=== PATIENT | female | born 1940 | race Caucasian/White ===

== ENCOUNTER 2016-12-04 08:55 | Day surgery (SDC) | payer MEDICARE, OTHER ==
[~2016-12-04] VITALS: Ht 157.5 cm; Wt 53.5 kg
[~2016-12-04 08:55] MED LIST: AMITRIPTYLINE H50 MG PO; BUTALBITAL-ASA1 EAC1 PO; CITALOPRAM HBR10 MG PO; KLOR-CON20 MEQ PO; MILK OF MA400 MG/5 M PO; NORCO 5-325 TA1 EACH PO; ONDANSETRON ODT4 MG; POTASSIUM20 MEQ/15 PO; PRILOSEC20 MG PO; SUPER B COMPLE150 MG PO; SYNTHROID75 MCG PO; TOPIRAMATE25 MG PO; VITAMIN C250 MG PO; VITAMIN D3400 UNI1 PO
--- NOTE | 2016-12-04 10:45 | NUR ---
12/04/16 1045 Terrell Martinez PATIENT SITTING UP AND SIPPING WATER. O2 TITRATED TO ROOM AIR
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
== END 2016-12-04 11:08 | disposition home or self-care (01) ==
LOC: OPS 08:55 → DS 10:30 → OPS 11:08
PROVIDERS: Colon & Rectal Surgery
PROC: 0DB48ZX Excision of Esophagogastric Junction, Via Natural or Artificial Opening Endoscopic, Diagnostic (ICD-10-PCS; 2016-12-04)
PROC: 0DB68ZX Excision of Stomach, Via Natural or Artificial Opening Endoscopic, Diagnostic (ICD-10-PCS; principal; 2016-12-04 10:30)
DX: K29.50 Unspecified chronic gastritis without bleeding (principal); K22.2 Esophageal obstruction; I10 Essential (primary) hypertension; I87.2 Venous insufficiency (chronic) (peripheral); E03.9 Hypothyroidism, unspecified; M19.90 Unspecified osteoarthritis, unspecified site; G43.909 Migraine, unspecified, not intractable, without status migrainosus; F32.9 Major depressive disorder, single episode, unspecified; Z85.42 Personal history of malignant neoplasm of other parts of uterus; Z79.899 Other long term (current) drug therapy; Z86.010 Personal history of colon polyps; Z98.890 Other specified postprocedural states; Z90.710 Acquired absence of both cervix and uterus; Z87.891 Personal history of nicotine dependence; Z88.8 Allergy status to other drugs, medicaments and biological substances
CPT/HCPCS: 86677; 88305; 99152; 99153; J2250; J3010; J7120

== ENCOUNTER 2018-06-25 10:11 | Emergency (ER) | payer MEDICARE, OTHER ==
[~2018-06-25] VITALS: Ht 157.5 cm; Wt 50.8 kg
--- OUTSIDE RECORDS SUMMARY | ~2018-06-25 | XMS | Encounter Summary ---
Demographics + + + | Address | [address] | | | [place] [address] | + + + | Home Phone | | + + + | Preferred Language | Unknown | + + + | Marital Status | | + + + | Alevism Affiliation | Unknown | + + + | Race | Unknown | + + + | Ethnic Group | Unknown | + + + Author + + + | Author | [facility] | | | and [place] | + + + | Organization | [facility] | | | and [place] | + + + | Address | Unknown | + + + | Phone | Unavailable | + + + Support + + +---------+ + | Name | Relationship | Address | Phone | + + +---------+ + | Sangita Lopez | ECON | Unknown | | + + +---------+ + Care Team Providers + +------+ + | Care Plant Maintenance Manager Name | Role | Phone | + +------+ + | Geovany Oh MD | PCP | | + +------+ + Reason for Referral Diagnostic/Screening (Routine) + +--------+ + + + + | Status | Reason | Specialty | Diagnoses / | Referred By | Referred To | | | | | Procedures | Contact | Contact | + +--------+ + + + + | Authorized | | Radiology | Diagnoses | Field, | [address] | | | | | Occlusion | Mike I, | [address] | | | | | and stenosis | [place] | [place], | | | | | of | [address] | [place] [address] | | | | | unspecified | [place] | Phone: | | | | | carotid | [place], [place] | [phone] | | | | | artery | [address] | Fax: | | | | | Procedures | Phone: | [phone] | | | | | CT Angiogram | [phone] | | | | | | Neck w | Fax: | | | | | | Contrast | [phone] | | + +--------+ + + + + Reason for Visit + + + | Reason | Comments | + + + | New Patient | Occlusion and stenosis of unspecified carotid artery | + + + Evaluate & Treat (Routine) + +--------+ + + + + | Status | Reason | Specialty | Diagnoses / | Referred By | Referred To | | | | | Procedures | Contact | Contact | + +--------+ + + + + | Authorized | | General | Diagnoses | Adri[place], | [facility] | | | | Surgery | Occlusion | Geovany | General | | | | | and stenosis | MD Aime | Surgery [address] | | | | | of | [address] | | | | | unspecified | [address] | [place], | | | | | carotid | [place], | [place] [address] | | | | | artery | [place] [address] | Phone: | | | | | Procedures | Phone: | [phone] | | | | | [place] OFFICE | [phone] | Fax: | | | | | OUTPATIENT | Fax: | [phone] | | | | | NEW 45 | [phone] | | | | | | MINUTES | | | + +--------+ + + + + Encounter Details +--------+---------+ + + + | Date | Type | Department | Care Team | Description | +--------+---------+ + + + | 06/23/ | Office | [facility] | Mike Hanna | Occlusion and | | 2018 | Visit | SURGERY [address] | MD Yanira, FACS [address] | stenosis of | | | | [address] [place], [place] | [address] [place] | unspecified carotid | | | | [address] | [place] [address] | artery (Primary Dx) | | | | [phone] | [phone] | | | | | | | | +--------+---------+ + + + Social History + +-------+ +--------+ + | Tobacco Use | Types | Packs/Day | Years | Date | | | | | Used | | + +-------+ +--------+ + | Former Smoker | | | | Quit: 05/22/2001 | + +-------+ +--------+ + + +---+---+---+ | Smokeless Tobacco: | | | | | Never Used | | | | + +---+---+---+ + + +---------+ + | Alcohol Use | Drinks/We | oz/Week | Comments | | | ek | | | + + +---------+ + | Yes | 0 | 0.0 | Rum & Coke, 5-6 per week or less | | | Standard | | | | | drinks or | | | | | | | | | | equivalen | | | | | t | | | + + +---------+ + + + + | Sex Assigned at | Date Recorded | | | | + + + | Not on file | | + + + + + + + | Job Start Date | Occupation | Industry | + + + + | Not on file | Not on file | Not on file | + + + + + + + + | Travel History | Travel Start | Travel End | + + + + + + | No recent travel history available. | + + documented as of this encounter Last Filed Vital Signs + + + + | Vital Sign | Reading | Time Taken | + + + + | Blood Pressure | 148/78 | 06/23/2018 0946 PDT | + + + + | Pulse | 87 | 06/23/2018945 PDT | + + + + | Temperature | 37.2 C (99 F) | 06/23/2018945 PDT | + + + + | Respiratory Rate | 18 | 06/23/2018945 PDT | + + + + | Oxygen Saturation | 94% | 06/23/2018945 PDT | + + + + | Inhaled Oxygen | - | - | | Concentration | | | + + + + | Weight | 45.7 kg (100 lb 12 | 06/23/2018945 PDT | | | oz) | | + + + + | Height | 158.8 cm (5' 2.5") | 06/23/2018945 PDT | + + + + | Body Mass Index | 18.13 | 06/23/2018945 PDT | + + + + documented in this encounter Plan of Treatment + +--------+ + + | Name | Priori | Associated Diagnoses | Order Schedule | | | ty | | | + +--------+ + + | CT Angiogram Neck w Contrast | Routin | Occlusion and | Expected: | | | e | stenosis of | 06/23/2018, Expires: | | | | unspecified carotid | 06/24/2019 | | | | artery | | + +--------+ + + documented as of this encounter Results Basic Metabolic Panel (06/23/2018 11:05 PDT) + +---------+ + + + | Component | Value | Ref Range | Performed | Pathologist | | | | | At | Signature | + +---------+ + + + | Na | 135 (L) | 136 - 145 | [facility] | | | | | mmol/L | [facility] | [facility] | | | | | [facility] - | | | | | | LAB[facility]ATORY | | + +---------+ + + + | K | 3.7 | 3.4 - 5.1 | [facility] | | | | | mmol/L | [facility] | [facility] | [facility] | | | | | | [facility] - | | | | | | LABORATORY | | + +---------+ + + + | Cl | 103 | 98 - 107 mmol/L | [facility] | | | | | | [facility] | | | | | | [facility] | | | | | | [facility] - | | | | | | LABORATORY | | + +---------+ + + + | CO2 | 28 | 20 - 31 mmol/L | [facility] | | | | | | [facility] | | | [facility] | [facility] | | | | | | [facility] - | | | | | | LABORATORY | | + +---------+ + + + | Anion Gap | 4 | 3 - 16 mmol/L | [facility] | | | | | | [facility] | [facility] | [facility] | [facility] | | | | | | [facility] - | | | | | | LAB[facility]ATORY | | + +---------+ + + + | Glucose | 92 | 60 - 106 mg/dL | [facility] | | | | | | [facility] | | | | | | [facility] | | | | | | [facility] - | | | | | | LABORATORY | | + +---------+ + + + | BUN | 11 | 9 - 23 mg/dL | [facility] | | | | | | [facility] | | | | | | [facility] | | | | | | C[facility] - | | | | | | LABORATORY | | + +---------+ + + + | Creatinine | 0.73 | 0.55 - 1.02 | [facility] | | | | | mg/dL | [facility] | | | | | | [facility] | | | | | | C[facility] - | | | | | | LABORATORY | | + +---------+ + + + | eGFR if not | >60 | >=60 | [facility] | | | | | mL/min/1.73m2 | [facility] | | | [facility] | | | [facility]ICAL | | | | | | CENTER - | | | | | | LABORATORY | | + +---------+ + + + | Ca | 9.1 | 8.7 - 10.4 | [facility] | | | | | mg/dL | [facility] | | | | | | [facility] | | | | | | C[facility] - | | | | | | LABORATORY | | + +---------+ + + + | BUN/Creatin | 15.1 | | [facility] | | | ine Ratio | | | [facility] | | | [facility] | [facility] | | | | | | [facility] - | | | | | | LABORATORY | | + +---------+ + + + + + | Specimen | + + | Blood | + + + + + + + | Performing | Address | City/State[facility] | Phone Number | | Organization | | | | + + + + + | [facility] | [address] | [place] | [phone] | | [facility] | | [address] | | | - LABORATORY | | | | + + + + + documented in this encounter Visit Diagnoses + + | Diagnosis | + + | Occlusion and stenosis of unspecified carotid artery - Primary | + + documented in this encounter
--- OUTSIDE RECORDS SUMMARY | ~2018-06-25 | XMS | Clinical Summary ---
Demographics + + + | Address | [address] | | | [place] [address] | + + + | Home Phone | | + + + | Preferred Language | Unknown | + + + | Marital Status | | + + + | Pentecostalism Affiliation | Unknown | + + + | Race | Unknown | + + + | Ethnic Group | Unknown | + + + Author + + + | Author | [facility] | | | and [place] | + + + | Organization | [facility] | | | and [...] Team Providers + +------+ + | Care Tdp Displays Analyst Name | Role | Phone | + +------+ + | Geovany Oh MD | PP | | + +------+ + Allergies + + + + + + | Active Allergy | Reactions | Severity | Noted | Comments | | | | | Date | | + + + + + + | Atorvastatin | Other (See Comments) | | | Reaction: Severe | | | | | | headaches | + + + + + + | Banana | Nausea And Vomiting | | 05/19/19 | | | | | | 16 | | + + + + + + | Promethazine | Other (See Comments) | High | | Reaction: seizures | + + + + + + Medications + + + +---------+------+------+-------+ | Medication | Sig | Dispensed | Refills | Star | End | Statu | | | | | | t | Date | s | | | | | | Date | | | + + + +---------+------+------+-------+ | magnesium oxide | Take 400 mg by mouth | | 0 | | | Activ | | (MAG-OX) 400 mg | Daily. | | | | | e | | tablet | | | | | | | + + + +---------+------+------+-------+ | topiramate | Take 25 mg by mouth | | 0 | | | Activ | | (TOPAMAX) 25 mg | 2 times daily. | | | | | e | | tablet | | | | | | | + + + +---------+------+------+-------+ | levothyroxine | Take 75 mcg by mouth | | 0 | | | Activ | | (SYNTHROID, | every morning | | | | | e | | LEVOTHROID) 75 MCG | (before breakfast). | | | | | | | tablet | | | | | | | + + + +---------+------+------+-------+ | amitriptyline | Take 50 mg by mouth | | 0 | | | Activ | | (ELAVIL) 50 mg | nightly. | | | | | e | | tablet | | | | | | | + + + +---------+------+------+-------+ | Multiple | Take 1 tablet by | | 0 | | | Activ | | Vitamins-Minerals | mouth Daily. | | | | | e | | (MULTIVITAMIN ADULT | | | | | | | | PO) | | | | | | | + + + +---------+------+------+-------+ | cholecalciferol | Take 5,000 Units by | | 0 | | | Activ | | (VITAMIN D-3) 1,000 | mouth Daily. | | | | | e | | units capsule | | | | | | | + + + +---------+------+------+-------+ | B Complex Vitamins | Take 400 mg by mouth | | 0 | | | Activ | | (VITAMIN B COMPLEX | Daily. | | | | | e | | PO) | | | | | | | + + + +---------+------+------+-------+ | UNABLE TO FIND | Take 1 capsule by | | 0 | | | Activ | | | mouth Daily. Med | | | | | e | | | Name: Hydroflexin 1 | | | | | | | | per day for | | | | | | | | arthritis | | | | | | + + + +---------+------+------+-------+ | melatonin 5 mg | Take 5 mg by mouth | | 0 | | | Activ | | tablet | nightly. | | | | | e | + + + +---------+------+------+-------+ | sucralfate | Take 1 g by mouth 4 | | 0 | | | Activ | | (CARAFATE) 1 g | times daily. | | | | | e | | tablet | | | | | | | + + + +---------+------+------+-------+ | dexlansoprazole | Take 60 mg by mouth | | 0 | | | Activ | | (DEXILANT) [address] | Daily. | | | | | e | | capsule | | | | | | | + + + +---------+------+------+-------+ | metoclopramide | Take 1 tablet by | | 0 | 04/18 | | Activ | | (REGLAN) 5 MG tablet | mouth 3 times daily | | | 07/05 | | e | | | as needed. | | | 19 | | | + + + +---------+------+------+-------+ | omeprazole | Take 20 mg by mouth | | 0 | | 04/0 | Disco | | (PRILOSEC) 20 mg | every morning | | | | 11/04 | ntinu | | TBEC | (before breakfast). | | | | 19 | ed | + + + +---------+------+------+-------+ Active Problems + + + | Problem | Noted Date | + + + | Stricture of esophagus | 09/11/2012 | + + + | Gastroesophageal reflux disease with esophagitis | 09/11/2012 | + + + | GERD (gastroesophageal reflux disease) | | + + + | Arthritis | | + + + | Cancer | | + + + | Migraines | | + + + | Thyroid disease | | + + + | PVD (peripheral vascular disease) | | + + + | Brittanyer toe of left foot | | + + + Encounters +--------+ + + + + | Date | Type | Specialty | Care Team | Description | +--------+ + + + + | 06/23/ | Office | | Mike Hanna | Occlusion and | | 2018 | Visit | | MD Doyle FACS | stenosis of | | | | | | unspecified carotid | | | | | | artery (Primary Dx) | +--------+ + + + + | 06/16/ | Abstract | | Provider, | | | 2018 | | | MD Vera | | +--------+ + + + + from Last 3 Months Family History + + + + + | Medical History | Relation | Name | Comments | + + + + + | Heart disease | Mother | | | + + + + + | Colon cancer | Other | | | + + + + + | Cancer | Other | Cousin | Malignant pancreatic neoplasm | | | | Dolomite | | + + + + + | Cancer | Other | Cousin | Leukemia | | | | Hernandez | | + + + + + | Cancer | Other | Aunt | Oat cell carcinoma of the trachea | | | | Abril | | + + + + + | Cancer | Other | Cousin | Bone cancer | | | | Lindsay | | + + + + + | Cancer | Other | Aunt | Malignant pancreatic neoplasm | | | | Jessica | | + + + + + | Uterine cancer | Sister | Nancy | | + + + + + | Cancer | Sister | Jordyn | Malignant melanoma of the skin | + + + + + | Other cancer | Sister | Jordyn | Leukemia | + + + + + | Cancer | Sister | Monique | Malignant melanoma of the skin | + + + + + | Cancer | Son | | | + + + + + + + + + + | Relation | Name | Status | Comments | + + + + + | Father | | | | + + + + + | Mother | | | | + + + + + | Other | | | | + + + + + | Other | Cousin | | | | | Dolomite | | | + + + + + | Other | Cousin | | | | | Hernandez | | | + + + + + | Other | Aunt | | | | | Abril | | | + + + + + | Other | Cousin | | | | | Lindsay | | | + + + + + | Other | Cousin | | Malignant female breast neoplasm | | | Kimmy | (Age | | | | | 31) | | + + + + + | Other | Aunt | | | | | Jessica | | | + + + + + | Sister | Nancy | | | + + + + + | Sister | Jordyn | | | + + + + + | Sister | Monique | Alive | | + + + + + | Son | | | | + + + + + Social History + +-------+ [...] recent travel history available. | + + Last Filed Vital Signs + + + + | Vital Sign | Reading | Time Taken | + + + + | Blood Pressure | 148/78 | 06/23/2018945 PDT | + + + [...] 06/23/2018945 PDT | + + + + Plan of Treatment + + + + + | Health Maintenance | Due Date | Last Done | Comments | + + + + + | Vaccine: | | | | | Dtap/Tdap/Td (1 - | 0 | | | | Tdap) | | | | + + + + + | Vaccine: Zoster (2 | | 01/05/2009 | | | of 3) | 9 | | | + + + + + | Adult Annual | | | | | Wellness Visit | 5 | | | + + + + + | Vaccine: | Completed | 11/29/2014, 12/24/2012, | | | Pneumococcal 65+ | | 12/04/2011, Additional history | | | High/Highest Risk | | exists | | + + + + + | Vaccine: Influenza | Completed | 12/19/2017, 02/01/2017, | | | | | 11/14/2015, Additional history | | | | | exists | | + + + + + Procedures + +--------+ + + + | Procedure Name | Priori | Date/Time | Associated Diagnosis | Comments | | | ty | | | | + +--------+ + + + | BASIC METABOLIC | Routin | 06/23/2018 | Occlusion and | Results for this | | PANEL | e | 11:05 PDT | stenosis of | procedure are in the | | | | | unspecified carotid | results section. | | | | | artery | | + +--------+ + + + from Last 3 Months Results Basic Metabolic Panel (06/23/2018 11:05 PDT) [...] | | | | mg/dL | [facility] | | | [facility] | [facility] | | | | | | C[facility] - | | | | | | LABORATORY | | + +---------+ + + + | eGFR if not | >60 | >=60 | [facility] | | | | | mL/min/1.73m2 | [facility] | | | [facility] | | | MED[facility] | | | | | | CENTER - | | | | | | LABORATORY | | + +---------+ + + + | Ca | 9.1 | 8.7 - 10.4 | [facility] | | | | | mg/dL | [facility] | | | | | | [facility] | | | | | | CENTER - | | | | | | LABORATORY | | + +---------+ + + + | BUN/Creatin | 15.1 | | [facility] | | | ine Ratio | | | [facility] | | | | | | [facility] | | | | | | CENTER - | | | | | | LABORATORY | | + +---------+ + + + + + | Specimen | + + | Blood | + + + + + + + | Performing | Address | City/State/Zipcode | Phone Number | | Organization | | | | + + + + + | [facility] | [address] | [place] | [phone] | | [facility] | | [address] | | | - LABORATORY | | | | + + + + + from Last 3 Months Insurance + +--------+ +--------+ +---------+--------+ | Payer | Benefi | Subscriber | Effect | Phone | Address | Type | | | t Plan | ID | robert | | | | | | / | | Dates | | | | | | Group | | | | | | + +--------+ +--------+ +---------+--------+ | MEDICARE | [employer] | [id number] | 04/18/19 | [phone] | | Medica | | | RE | | 06-Pre | 5 | | re | | | PART A | | sent | | | | | | AND B | | | | | | + +--------+ +--------+ +---------+--------+ | | [employer] | [id number] | | [phone] | | Indemn | | | E FOR | | 014-Pr | 0 | | ity | | | LIFE | | esent | | | | + +--------+ +--------+ +---------+--------+ + +--------+ +--------+ + + | Guarantor Name | Accoun | Relation to | Date | Phone | Billing Address | | | t Type | Patient | of | | | | | | | | | | + +--------+ +--------+ + + | Brandee Jones | Person | Self | [birth year] | [address] | | | al/Fam | | 1941 | [phone] | [place] [address] | | | dalila | | | 2 (Home) | | + +--------+ +--------+ + + Advance Directives Patient has advance care planning documents on file. For more information, please contact:[facility] and [facility] [place] [address]
--- OUTSIDE RECORDS SUMMARY | ~2018-06-25 | XMS | Clinical Summary ---
Demographics + + + | Address | [address] | | | [place] [address] | + + + | Home Phone | | + + + | Preferred Language | Unknown | + + + | Marital Status | | + + + | Rastafarian Affiliation | Unknown | + + + | Race | Unknown | + + + | Ethnic Group | Unknown | + + + Author + + + | Author | [facility] | + + + | Organization | [facility] | + + + | Address | Unknown | + + + | Phone | Unavailable | + + + Support + + +---------+ + | Name | Relationship | Address | Phone | + + +---------+ + | Suzanne Ross | ECON | Unknown | | + + +---------+ + Care Team Providers + +------+ + | Care Machine Sweeper Brush Maker Name | Role | Phone | + +------+ + | Dr. Jessie | PP | Unavailable | + +------+ + Allergies + + + + + + | Active Allergy | Reactions | Severity | Noted | Comments | | | | | Date | | + + + + + + | Promethazine | Seizure | High | 05/20/19 | | | | | | 13 | | + + + + + + Current Medications + + +-------+---------+------+------+-------+ | Prescription | Sig. | Disp. | Refills | Star | End | Statu | | | | | | t | Date | s | | | | | | Date | | | + + +-------+---------+------+------+-------+ | levothyroxine | Take 75 mcg by mouth | | | | | Activ | | (SYNTHROID, | daily. | | | | | e | | LEVOTHROID) 75 MCG | | | | | | | | tablet | | | | | | | + + +-------+---------+------+------+-------+ | | Take 1 capsule by | | | | | Activ | | [id number]-d | mouth every 4 (four) | | | | | e | | affeine (FIORINAL) | hours as needed. | | | | | | | 50-325-40 MG per | | | | | | | | capsule | | | | | | | + + +-------+---------+------+------+-------+ | omeprazole | Take 20 mg by mouth | | | | | Activ | | (PRILOSEC) 20 MG | 2 (two) times daily. | | | | | e | | capsule | | | | | | | + + +-------+---------+------+------+-------+ | VITAMIN D, | Take by mouth. | | | | | Activ | | ERGOCALCIFEROL, PO | | | | | | e | + + +-------+---------+------+------+-------+ | Magnesium | Take by mouth. | | | | | Activ | | Hydroxide (MAGNESIA | | | | | | e | | PO) | | | | | | | + + +-------+---------+------+------+-------+ | Calcium | Take by mouth. | | | | | Activ | | Carbonate-Vitamin D | | | | | | e | | (CALCIUM + D PO) | | | | | | | + + +-------+---------+------+------+-------+ Active Problems No known active problems Social History + +-------+ +--------+------+ | Tobacco Use | Types | Packs/Day | Years | Date | | | | | Used | | + +-------+ +--------+------+ | Never Assessed | | | | | + +-------+ +--------+------+ + + + | Sex Assigned at | Date Recorded | | | | + + + | Not on file | | + + + Last Filed Vital Signs + + + + | Vital Sign | Reading | Time Taken | + + + + | Blood Pressure | 146/80 | 05/19/2012 11:10 AM PST | + + + + | Pulse | 85 | 05/19/2012 11:10 AM PST | + + + + | Temperature | 36.9 C (98.4 F) | 05/19/2012 10:22 AM PST | + + + + | Respiratory Rate | 18 | 05/19/2012 11:10 AM PST | + + + + | Oxygen Saturation | 98% | 05/19/2012 11:10 AM PST | + + + + | Inhaled Oxygen | - | - | | Concentration | | | + + + + | Weight | 57.2 kg (126 lb) | 05/19/2012 10:22 AM PST | + + + + | Height | - | - | + + + + | Body Mass Index | - | - | + + + + Plan of Treatment Not on file Results Not on filefrom Last 3 Months Insurance + +--------+ +------+-------+ + | Payer | Benefi | Subscriber | Type | Phone | Address | | | t Plan | ID | | | | | | / | | | | | | | Group | | | | | + +--------+ +------+-------+ + | MEDICARE | MEDICA | [id number] | | | [address] | | | RE | | | | [place] [address] | | | IP-OP | | | | | + +--------+ +------+-------+ + | FRANCK - S - | [place] | [id number] | | | [address] [address] | | | S - | | | | [place] | | | [place] - | | | | [phone] | | | [place] | | | | | | | E | | | | | + +--------+ +------+-------+ + + +--------+ +--------+ + + | Guarantor Name | Accoun | Relation to | Date | Phone | Billing Address | | | t Type | Patient | of | | | | | | | | | | + +--------+ +--------+ + + | OLU GARCIA | Person | Self [birth year] | Home: | [address] | | | al/Fam | | 1941 | [phone] [place], [place] | | | [place] | | | [phone] | [address] | + +--------+ +--------+ + +"
--- OUTSIDE RECORDS SUMMARY | ~2018-06-25 | XMS | Encounter Summary ---
Demographics + + + | Address | [address] | | | [place] [address] | + + + | Home Phone | | + + + | Preferred Language | Unknown | + + + | Marital Status | | + + + | Scientology Affiliation | Unknown | + + + | Race | Unknown | + + + | Ethnic Group | Unknown | + + + Author + + + | Author | [facility] | | | and José Miguelana | + + + | Organization | [facility] | | [...] Team Providers + +------+ + | Care Heavy Media Operator Name | Role | Phone | + +------+ + | Geovany Oh MD | PCP | | + +------+ + Encounter Details +--------+ + + + + | Date | Type | Department | Care Team | Description | +--------+ + + + + | 06/16/ | Abstract | [facility] | Provider, | | | 2018 | | SURGERY [address] | [address] | | | | | [place] | [place] | | | | | [address] | [place] [address] | | | | | [phone] | | | +--------+ + + + + Social History + [...] + + documented as of this encounter Progress Notes Beth Ward, Spray Painter Helper - 06/16/2018 1348 PDTUS/Carotids Duplex Bilat Comp at [facility] Findings: Visible Atherosclerotic Plaques [place]: Right: There is moderate mixed plaque formation in the carotid bulb and proximal internal c arotid artery. Left: There's mild, calcified atherosclerotic plaque formation in the carotid bulb and prox imal internal carotid artery with mild visible stenosis. Velocity measurements: Right: CCA: 61.5 cm/sec Carotid Bulb: 46.2 cm/sec Proximal ICA: 387.1 cm/sec Mid ICA: 208.4 cm/sec Distal ICA: 92.8 cm/sec ICA/CCA Ratio: 8.4 Vertebral Artery: Antegrade flow detected Left: CCA: 75.4 cm/sec Carotid Bulb: 55.9 cm/sec Proximal ICA : 104.8 cm/sec MID ICA: 88.3 cm/sec Distal ICA: 71.7 cm/sec ICA/CCA Ratio: 1.4 Vertebral Artery: The Left vertebral artery appeared occluded with flow detected. Incidental bilateral thyroid nodules identified with the solid nodule on the Right measurin g 0.9 x 0.6 x 0.8 cm. A second hypoechoic nodule identified in the lower pole of the Right t hyroid lobe measuring 0.9 x 0.7 x 0.7 cm. Impression: Right: There is significant mixed atherosclerotic plaque formation in the Right carotid bul b and proximal Right ICA with a significant elevated velocities. There is elevated ICA/CCA r atio with the stenosis greater than 70% (estimated at close to 90 percent) Left: Mild mixed atherosclerotic plaque formation within the carotid bulb and proximal ICA. Based on velocity measurement, this stenosis is less than 50 percent. Vertebral arteries An tegrade vertebral flow was detected bilaterally. The Right vertebral artery appear patent. There is absence of flow in the Left vertebral ar amanda, consistent with occluded vessel. Incidentally, subcentimeter solid Right thyroid nodules identified. Follow up dedicated thy roid ultrasound can be considered. Please refer to the body of the report for additional details. Results were communicated to [place], at the office of Dr. Geovany Oh Report signed by Inderjit Lance MD documented in this encounter Plan of Treatment Not on filedocumented as of this encounter Procedures + +--------+ + + + | Procedure Name | Priori | Date/Time | Associated Diagnosis | Comments | | | ty | | | | + +--------+ + + + | EXTERNAL LAB: | Routin | 07/25/2017 | | Results for this | | GLUCOSE | e | | | procedure are in the | | | | | | results section. | + +--------+ + + + | EXTERNAL LAB: ALT | Routin | 07/25/2017 | | Results for this | | | e | | | procedure are in the | | | | | | results section. | + +--------+ + + + | EXTERNAL LAB: AST | Routin | 07/25/2017 | | Results for this | | | e | | | procedure are in the | | | | | | results section. | + +--------+ + + + | EXTERNAL LAB: | Routin | 07/25/2017 | | Results for this | | ALKALINE PHOSPHATASE | e | | | procedure are in the | | | | | | results section. | + +--------+ + + + | EXTERNAL LAB: | Routin | 07/25/2017 | | Results for this | | BILIRUBIN, TOTAL | e | | | procedure are in the | | | | | | results section. | + +--------+ + + + | EXTERNAL LAB: | Routin | 07/25/2017 | | Results for this | | ALBUMIN | e | | | procedure are in the | | | | | | results section. | + +--------+ + + + | EXTERNAL LAB: | Routin | 07/25/2017 | | Results for this | | PROTEIN, TOTAL | e | | | procedure are in the | | | | | | results section. | + +--------+ + + + | EXTERNAL LAB: | Routin | 07/25/2017 | | Results for this | | CALCIUM | e | | | procedure are in the | | | | | | results section. | + +--------+ + + + | EXTERNAL LAB: CARBON | Routin | 07/25/2017 | | Results for this | | DIOXIDE | e | | | procedure are in the | | | | | | results section. | + +--------+ + + + | EXTERNAL LAB: | Routin | 07/25/2017 | | Results for this | | CHLORIDE | e | | | procedure are in the | | | | | | results section. | + +--------+ + + + | EXTERNAL LAB: | Routin | 07/25/2017 | | Results for this | | POTASSIUM | e | | | procedure are in the | | | | | | results section. | + +--------+ + + + | EXTERNAL LAB: SODIUM | Routin | 07/25/2017 | | Results for this | | | e | | | procedure are in the | | | | | | results section. | + +--------+ + + + | EXTERNAL LAB: TSH | Routin | 07/25/2017 | | Results for this | | | e | | | procedure are in the | | | | | | results section. | + +--------+ + + + | EXTERNAL LAB: EGFR | Routin | 07/25/2017 | | Results for this | | | e | | | procedure are in the | | | | | | results section. | + +--------+ + + + | EXTERNAL LAB: | Routin | 07/25/2017 | | Results for this | | CREATININE | e | | | procedure are in the | | | | | | results section. | + +--------+ + + + | COMPREHENSIVE | Routin | 07/25/2017 | | Results for this | | METABOLIC PANEL | e | | | procedure are in the | | | | | | results section. | + +--------+ + + + | BASIC METABOLIC | Routin | 07/25/2017 | | Results for this | | PANEL | e | | | procedure are in the | | | | | | results section. | + +--------+ + + + documented in this encounter Results Comprehensive Metabolic Panel (07/25/2017) + +-------+ + + + | Component | Value | Ref Range | Performed | Pathologist | | | | | At | Signature | + +-------+ + + + | Globulin | 2.4 | 1.8 - 3.5 | | | + +-------+ + + + | Albumin/Shayla | 1.8 | 1.1 - 2.4 | | | | bulin Ratio | | | | | + +-------+ + + + + + | Specimen | + + | Blood | + + Basic Metabolic Panel (07/25/2017) + +-------+ + + + | Component | Value | Ref Range | Performed | Pathologist | | | | | At | Signature | + +-------+ + + + | Anion Gap | 18 | 7 - 21 mmol/L | | | + +-------+ + + + | Bun/Creatin | 17.3 | 6.0 - 28.6 | | | | ine | | | | | + +-------+ + + + + + | Specimen | + + | Blood | + + External Lab: Glucose (07/25/2017) + +-------+ + + + | Component | Value | Ref Range | Performed | Pathologist | | | | | At | Signature | + +-------+ + + + | Glucose, | 95 | 70 - 100 | EXTERNAL | | | External | | | LAB | | + +-------+ + + + + +---------+ + + | Performing | Address | City/State/Zipcode | Phone Number | | Organization | | | | + +---------+ + + | EXTERNAL LAB | | | | + +---------+ + + External Lab: ALT (07/25/2017) + +-------+ + + + | Component | Value | Ref Range | Performed | Pathologist | | | | | At | Signature | + +-------+ + + + | ALT, | 10 | 7 - 52 | EXTERNAL | | | External | | | LAB | | + +-------+ + + + + +---------+ + + | Performing | Address | City/State/Zipcode | Phone Number | | Organization | | | | + +---------+ + + | EXTERNAL LAB | | | | + +---------+ + + External Lab: AST (07/25/2017) + +--------+ + + + | Component | Value | Ref Range | Performed | Pathologist | | | | | At | Signature | + +--------+ + + + | AST, | 11 (A) | 13 - 39 | EXTERNAL | | | External | | | LAB | | + +--------+ + + + + +---------+ + + | Performing | Address | City/State/Zipcode | Phone Number | | Organization | | | | + +---------+ + + | EXTERNAL LAB | | | | + +---------+ + + External Lab: Alkaline Phosphatase (07/25/2017) + +-------+ + + + | Component | Value | Ref Range | Performed | Pathologist | | | | | At | Signature | + +-------+ + + + | ALP, | 80 | 31 - 130 | EXTERNAL | | | External | | | LAB | | + +-------+ + + + + +---------+ + + | Performing | Address | City/State/Zipcode | Phone Number | | Organization | | | | + +---------+ + + | EXTERNAL LAB | | | | + +---------+ + + External Lab: Bilirubin, Total (07/25/2017) + +-------+ + + + | Component | Value | Ref Range | Performed | Pathologist | | | | | At | Signature | + +-------+ + + + | Bilirubin, | 0.3 | 0 - 1.2 | EXTERNAL | | | Total, | | | LAB | | | External | | | | | + +-------+ + + + + +---------+ + + | Performing | Address | City/State/Zipcode | Phone Number | | Organization | | | | + +---------+ + + | EXTERNAL LAB | | | | + +---------+ + + External Lab: Albumin (07/25/2017) + +-------+ + + + | Component | Value | Ref Range | Performed | Pathologist | | | | | At | Signature | + +-------+ + + + | Albumin, | 4.2 | 3.5 - 5 | EXTERNAL | | | External | | | LAB | | + +-------+ + + + + +---------+ + + | Performing | Address | City/State/Zipcode | Phone Number | | Organization | | | | + +---------+ + + | EXTERNAL LAB | | | | + +---------+ + + External Lab: Protein, Total (07/25/2017) + +-------+ + + + | Component | Value | Ref Range | Performed | Pathologist | | | | | At | Signature | + +-------+ + + + | Protein, | 6.6 | 6 - 8 | EXTERNAL | | | Total, | | | LAB | | | External | | | | | + +-------+ + + + + +---------+ + + | Performing | Address | City/State/Zipcode | Phone Number | | Organization | | | | + +---------+ + + | EXTERNAL LAB | | | | + +---------+ + + External Lab: Calcium (07/25/2017) + +-------+ + + + | Component | Value | Ref Range | Performed | Pathologist | | | | | At | Signature | + +-------+ + + + | Calcium, | 9.5 | 8.4 - 10.2 | EXTERNAL | | | External | | | LAB | | + +-------+ + + + + +---------+ + + | Performing | Address | City/State/Zipcode | Phone Number | | Organization | | | | + +---------+ + + | EXTERNAL LAB | | | | + +---------+ + + External Lab: Carbon Dioxide (07/25/2017) + +-------+ + + + | Component | Value | Ref Range | Performed | Pathologist | | | | | At | Signature | + +-------+ + + + | Carbon | 25 | 19 - 31 | EXTERNAL | | | Dioxide, | | | LAB | | | External | | | | | + +-------+ + + + + +---------+ + + | Performing | Address | City/State/Zipcode | Phone Number | | Organization | | | | + +---------+ + + | EXTERNAL LAB | | | | + +---------+ + + External Lab: Chloride (07/25/2017) + +-------+ + + + | Component | Value | Ref Range | Performed | Pathologist | | | | | At | Signature | + +-------+ + + + | Chloride, | 103 | 95 - 112 | EXTERNAL | | | External | | | LAB | | + +-------+ + + + + +---------+ + + | Performing | Address | City/State/Zipcode | Phone Number | | Organization | | | | + +---------+ + + | EXTERNAL LAB | | | | + +---------+ + + External Lab: Potassium (07/25/2017) + +-------+ + + + | Component | Value | Ref Range | Performed | Pathologist | | | | | At | Signature | + +-------+ + + + | Potassium, | 3.6 | 3.6 - 5.1 | EXTERNAL | | | External | | | LAB | | + +-------+ + + + + +---------+ + + | Performing | Address | City/State/Zipcode | Phone Number | | Organization | | | | + +---------+ + + | EXTERNAL LAB | | | | + +---------+ + + External Lab: Sodium (07/25/2017) + +-------+ + + + | Component | Value | Ref Range | Performed | Pathologist | | | | | At | Signature | + +-------+ + + + | Sodium, | 142 | 132 - 143 | EXTERNAL | | | External | | | LAB | | + +-------+ + + + + +---------+ + + | Performing | Address | City/State/Zipcode | Phone Number | | Organization | | | | + +---------+ + + | EXTERNAL LAB | | | | + +---------+ + + External Lab: TSH (07/25/2017) + +-------+ + + + | Component | Value | Ref Range | Performed | Pathologist | | | | | At | Signature | + +-------+ + + + | TSH, | 2.21 | 0.27 - 4.2 | EXTERNAL | | | External | | | LAB | | + +-------+ + + + + + | Specimen | + + | Blood | + + + +---------+ + + | Performing | Address | City/State/Zipcode | Phone Number | | Organization | | | | + +---------+ + + | EXTERNAL LAB | | | | + +---------+ + + External Lab: eGFR (07/25/2017) + +-------+ + + + | Component | Value | Ref Range | Performed | Pathologist | | | | | At | Signature | + +-------+ + + + | eGFR, | 75 | | EXTERNAL | | | External | | | LAB | | + +-------+ + + + + + | Specimen | + + | Blood | + + + +---------+ + + | Performing | Address | City/State/Zipcode | Phone Number | | Organization | | | | + +---------+ + + | EXTERNAL LAB | | | | + +---------+ + + External Lab: Creatinine (07/25/2017) + +-------+ + + + | Component | Value | Ref Range | Performed | Pathologist | | | | | At | Signature | + +-------+ + + + | Creatinine, | 0.75 | 0.7 - 1.18 | EXTERNAL | | | External | | | LAB | | + +-------+ + + + + + | Specimen | + + | Blood | + + + +---------+ + + | Performing | Address | City/State/Zipcode | Phone Number | | Organization | | | | + +---------+ + + | EXTERNAL LAB | | | | + +---------+ + + documented in this encounter Visit Diagnoses Not on filedocumented in this encounter"
--- OUTSIDE RECORDS SUMMARY | ~2018-06-25 | XMS | Clinical Summary ---
Demographics + + + | Address | [address] | | | [place] [address] | + + + | Home Phone | | + + + | Preferred Language | Unknown | + + + | Marital Status | | + + + | Congregation Affiliation | Unknown | + + + | Race | Unknown | + + + | Ethnic Group | Unknown | + + + Author + + + | Author | [facility] | + + + | Organization | [facility] | + + + | Address | Unknown | + + + | Phone | Unavailable | + + + Support + + +---------+ + | Name | Relationship | Address | Phone | + + +---------+ + | Suzanne Ross | ECON | Unknown | | + + +---------+ + Care Team Providers + +------+ + | Care Life Skills Instructor Name | Role | Phone | + [...] | | | | Activ | | [id number]-l | mouth every 4 (four) | | [...] +------+-------+ + | MEDICARE | MEDICA | [id number] | | | [address] | | | RE | | | | [place] [address] | | | IP-OP | | | | | + +--------+ +------+-------+ + | FRANCK - S - | [place] | [id number] | | | [address] [address] | | | S - | | | | [place] | | | [place] - | | | | [address] | | | [place] | | | [...] | [place] | | | [phone] | [address] | + +--------+ +--------+ + +"
--- OUTSIDE RECORDS SUMMARY | ~2018-06-25 | XMS | Encounter Summary ---
Demographics + + + | Address | [address] | | | [place] [address] | + + + | Home Phone | | + + + | Preferred Language | Unknown | + + + | Marital Status | | + + + | Confucianism Affiliation | Unknown | + + + | Race | Unknown | + + + | Ethnic Group | Unknown | + + + Author + + + | Author | [facility] | | | and José Miguelana | + + + | Organization | [facility] | | | and [...] Team Providers + +------+ + | Care Vat Overhauler Name | Role | Phone | + +------+ + | Geovany Oh MD | PCP | | + +------+ + Encounter Details +--------+ + + + + | Date | Type | Department | Care Team | Description | +--------+ + + + + | 06/16/ | Abstract | [facility] | Provider, | | | 2018 | | SURGERY [address] | [address] | | | | | [place] | [place] | | | | | [address] | [place] [address] | | | | | [phone] | | | +--------+ + + + [...] of this encounter Progress Notes Beth Ward, Social Media Director - 06/16/2018 1348 PDTUS/Carotids Duplex Bilat Comp at [facility] Findings: Visible Atherosclerotic Plaques [place]: Right: There is moderate mixed plaque formation [...]
--- OUTSIDE RECORDS SUMMARY | ~2018-06-25 | XMS | Encounter Summary ---
Demographics + + + | Address | [address] | | | [place] [address] | + + + | Home Phone | | + + + | Preferred Language | Unknown | + + + | Marital Status | | + + + | Congregational Affiliation | Unknown | + + + | Race | Unknown | + + + | Ethnic Group | Unknown | + + + Author + + + | Author | [facility] | | | and José Miguelana | + + + | Organization | [facility] | | | and [...] Team Providers + +------+ + | Care Community Educator Name | Role | Phone | + [...] | Occlusion | Mike I, | [place] | | | | | and stenosis | [place] | [place], | | | | | of | [address] | [place] [address] | | | | | unspecified | [place] | Phone: | | | | | carotid | [place], [place] | [phone] | | | | | artery | [address] | Fax: | | | | | Procedures | Phone: | [phone] | | | | | CT Angiogram | [phone] | | | | | | Neck w | Fax: | | | | | | Contrast | [phone] | | + +--------+ + + + [...] | | unspecified | [address] | [place], | | | | | carotid | [place], | [place] [address] | | | | | artery | [place] [address] | Phone: | | | | | Procedures | Phone: | [phone] | | | | | [place] OFFICE | [phone] | Fax: | | | | | OUTPATIENT | Fax: | [phone] | | | | | NEW 45 | [phone] | | | | | | MINUTES | | | + +--------+ + + + + Encounter Details +--------+---------+ + + + | Date | Type | Department | Care Team | Description | +--------+---------+ + + + | 06/23/ | Office | [facility] | Mike Hanna | Occlusion and | | 2018 | Visit | SURGERY [address] | MD Yanira, FACS [address] | stenosis of | | | | [place], [place] | [address] [place] | unspecified carotid | | | | [address] | [place] [address] | artery (Primary Dx) | | | | [phone] | [phone] | | | | | | | [...] mL/min/1.73m2 | [facility] | | | [facility] | | | MEDICAL | | | [...] + + | Performing | Address | City/State[facility] | Phone Number | | Organization | | | | + + + + + | [facility] 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
--- OUTSIDE RECORDS SUMMARY | ~2018-06-25 | XMS | Clinical Summary ---
Demographics + + + | Address | [address] | | | [place] [address] | + + + | Home Phone | | + + + | Preferred Language | Unknown | + + + | Marital Status | | + + + | Amish Affiliation | Unknown | + + + | Race | Unknown | + + + | Ethnic Group | Unknown | + + + Author + + + | Author | [facility] | | | and José Miguelana | + + + | Organization | [facility] | | | [...] Team Providers + +------+ + | Care Lot Porter Name | Role | Phone | + [...] Malignant pancreatic neoplasm | | | | Bear | | + + + + + [...] | Cousin | | | | | Bear | | | + + + + [...] mL/min/1.73m2 | [facility] | | | [place] | | | MEDICAL | | | [...] [address] | [place] | [phone] | | [facility] | | [address] | | | - LABORATORY | | [...] +--------+ +---------+--------+ | MEDICARE | MEDICA | [id number] | 04/18/19 | [phone] | | Medica | | | RE | | 06-Pre | 5 | | re | | | PART A | | sent | | | | | | AND B | | | | | | + +--------+ +--------+ +---------+--------+ | | [employer]ICAR | [id number] | | [phone] | | Indemn | [...] | | al/Fam | | 1941 | [phone] | [place] [address] | | | [place] | | | 2 (Home) | | + +--------+ +--------+ + + Advance Directives Patient has advance care planning documents on file. For more information, please contact:[facility] [place] [address]
[~2018-06-25 10:11] MED LIST changes: +CARAFATE1 GM PO; +OMEPRAZOLE20 MG PO
[2018-06-25] MEDS ORDERED: DEXILANT60 MG PO (10:28)
[2018-06-25] MEDS ORDERED: REGLAN10 MG PO (10:30)
[2018-06-25] MEDS ORDERED: PLAVIX75 MG PO (15:15)
--- NOTE | 2018-06-26 07:56 | EKG ---
[facility] [address] [facility] [place] [address] Signed Sinus rhythm with premature atrial complexes Otherwise normal ECG No previous ECGs available Confirmed by MARCELLO PINEDA MD ([id number]) on 06/26/2018 7:55:56 AM Electronically Signed By: MARCELLO PINEDA MD 06/26/18 0756 PATIENT NAME: OLU GARCIA Electrocardiogram DATE OF : 40 PHYSICIAN: MARCELLO PINEDA MD REPORT #: [id number] REPORT IS CONFIDENTIAL AND NOT TO BE RELEASED WITHOUT AUTHORIZATION
== END 2018-06-25 15:30 | disposition home or self-care (01) ==
LOC: ED 10:11
DX: I25.10 Atherosclerotic heart disease of native coronary artery without angina pectoris (principal); I67.9 Cerebrovascular disease, unspecified; Z87.891 Personal history of nicotine dependence; Z88.8 Allergy status to other drugs, medicaments and biological substances; Z79.899 Other long term (current) drug therapy
CPT/HCPCS: 70450; 70496; 70498; 80053; 84484; 85025; 85610; 85730; 93005; 93010; 99285-25; Q9967